=== PATIENT | female | born 1955 | race Hispanic/Latino ===

== ENCOUNTER 2018-09-27 07:43 | Day surgery (SDC) | payer BC, OTHER ==
[2018-09-27] MEDS ORDERED: HALFPRIN EC PO NR (08:39)
[2018-09-27] MEDS ORDERED: NACL 0.9% 500 ML 500 ML IV SCH (09:00)
[2018-09-27 09:11] LABS: Basophils % (Auto) 0.7 % (0.0-1.8); Eosinophils # (Auto) 0.2 K/mm3 (0.0-0.4); Eosinophils % (Auto) 4.3 % (0.0-4.3); Hematocrit 34.1 % (30.3-42.9); Hemoglobin 11.3 gm/dl (10.1-14.3); Lymphocytes # (Auto) 2.5 K/mm3 (1.2-5.4); Lymphocytes % (Auto) 51.4 % (13.4-35.0); Mean Corpuscular HGB Conc 33 % (30-34); Mean Corpuscular Volume 89 fl (79-97); Monocytes # (Auto) 0.3 K/mm3 (0.0-0.8); Monocytes % (Auto) 5.8 % (0.0-7.3); Platelet Count 242 K/mm3 (140-440); Red Blood Count 3.86 M/mm3 (3.65-5.03); Red Cell Distribution Width 15.2 % (13.2-15.2)
[2018-09-27 09:22] LABS: INR 0.84 (0.87-1.13)
[2018-09-27 09:23] LABS: Partial Thromboplastin Time 23.8 Sec. (24.2-36.6)
[2018-09-27 09:30] LABS: BUN/Creatinine Ratio 23; Blood Urea Nitrogen 14 mg/dL (7-17); Calcium 8.5 mg/dL (8.4-10.2); Hemolysis Index 4
[2018-09-27] MEDS ORDERED: HEPARIN/NS 5000 UNIT/500ML(CATH LAB) 1,000 ML IR ONE (10:38)
[2018-09-27] MEDS ORDERED: XYLOCAINE 2% INFILTRATI ONE (10:39)
[2018-09-27] MEDS ORDERED: VERSED ONE (10:39)
[2018-09-27] MEDS ORDERED: SUBLIMAZE ONE (10:39)
[2018-09-27] MEDS: NITROGLYCERIN SYRINGE 3 ML ONE ×2 (11:10→11:18)
[2018-09-27] MEDS: CALAN ONE ×2 (11:14→11:18)
[2018-09-27] MEDS: HEPARIN 10,000 UNITS/10 ML ONE ×2 (11:15→11:18)
--- NOTE | 2018-09-27 12:20 | Cardiac Catherization Report ---
REFERRING PHYSICIAN: Dr. Parish Ramírez. INDICATION FOR PROCEDURE: The patient is a very pleasant 63-year-old female with multiple risk factors including hypertension and who had a recent abnormal stress test, has been having recurrent chest pain and is referred for left heart catheterization. Risks, benefits, alternatives discussed prior to obtaining informed consent. PROCEDURE IN DETAIL: The patient was brought to the catheterization lab in a postabsorptive state, prepped and draped in the usual fashion. Colten's test in right hand was normal. A 2 mL of 2% lidocaine used to anesthetize the right wrist. A standard 5-Wallisian hydrophilic sheath used to cannulate the right radial artery via modified Seldinger technique. A 6-Wallisian sheath was used to cannulate the right radial artery via modified Seldinger technique. All exchanges were performed to exchange a J-tip guidewire. JL3.5 catheter used to engage the left main. No dampening or ventricularization. Cineangiography performed in all projections. JR4 catheter used to cross the aortic valve under fluoroscopic guidance. Left ventriculography was performed in 30 ANN and 30 YUE projections via hand injections, catheter flushed. Manual pullback performed with continuous pressure monitoring. Catheter used to engage the right coronary. No dampening or ventricularization. Cineangiography was performed in all projections. Next, due to recurrent chest pain, unremarkable coronaries, and hypertension, we proceeded with root aortogram with a pigtail catheter and power injector. Next, catheter removed from the body of wire, sheath removed. Manual pressure used to achieve hemostasis. I directly supervised the administration of moderate sedation from 11:10 a.m. to 11:30 a.m. with fentanyl and Versed. FINDINGS: The patient was in normal sinus rhythm throughout the procedure. DATA: Aortic pressure is 120/80, LV pressure is 120, LVP of 15 mmHg. Left ventriculography reveals normal systolic performance with estimated ejection fraction of 55%-60%. No evidence of aortic stenosis. CORONARY ANATOMY: Right dominant system. Right coronary is a large vessel, courses AV groove, distally bifurcates in the posterior and posterolateral branch, no discrete stenosis identified. Left main is a moderate sized vessel, is normal. No evidence of significant disease, bifurcates left anterior descending and left circumflex. Left circumflex is moderate sized vessel, courses AV groove, gives off a diminutive to AV groove circ and large OM trunk. No significant disease. LAD is a moderate sized vessel, courses anterior intergroove, wraps around the apex. Normal tapering in the LAD, but no significant disease. Root aortogram reveals normal contour, no evidence of dissection, penetrating aortic ulcer, or aortic insufficiency. Normal great vessel anatomy. CONCLUSIONS: 1. No angiographic evidence of significant epicardial coronary artery disease in this right dominant system. 2. Normal left ventricular systolic performance, estimated ejection fraction of 55%-60%. 3. No evidence of aortic stenosis. 4. Root aortography without evidence of dissection, penetrating aortic ulcer, or aortic insufficiency. The patient is clinically stable, chest pain free. She has no symptoms at this point, I believe her symptoms are noncardiac. Blood pressure control. Follow up with us in the office. Standard radial care. Results of procedure explained to the patient and her . All questions addressed. JOB# [id number] SBEra/NTS
--- NOTE | 2018-09-27 16:16 | Short Stay Summary ---
Short Stay Documentation Date of service: 09/27/18 - History H&P: obtained from office - Allergies and Medications Current Medications: Allergies No Known Allergies Allergy (Unverified 09/27/18 07:43) Home Medications Medication Instructions Recorded Confirmed Last Taken Type Lansoprazole [Prevacid] 30 mg PO DAILY 09/27/18 09/27/18 09/26/18 History 1Tab Levothyroxine [Synthroid] 125 mcg PO QDAY 09/27/18 09/27/18 09/26/18 History 1 tab Magnesium Oxide [Mag-Oxide] 400 mg PO BID 09/27/18 09/27/18 09/26/18 History 1 tab PARoxetine [Paxil] 20 mg PO DAILY 09/27/18 09/27/18 09/26/18 History 1 tab Simvastatin 80 mg PO DAILY 09/27/18 09/27/18 09/26/18 History Active Medications Sodium Chloride (Nacl 0.9% 500 Ml) 500 mls @ 50 mls/hr IV DIRECT MIREYA Stop: 09/27/18 18:59 Last Admin: 09/27/18 09:40 Dose: 50 mls/hr Documented by: - Brief post op/procedure progress note Date of procedure: 09/27/18 Pre-op diagnosis: abnormal stress test; cp Post-op diagnosis: same Procedure: LHC - see dictated cath report Anesthesia: local Estimated blood loss: none Condition: stable - Disposition Condition at discharge: Good Disposition: [id number] TO HOME OR SELFCARE - Discharge Diagnoses (1) Normal coronary arteries Status: Chronic Short Stay Discharge Plan Activity: advance as tolerated Wound: open to air, keep clean and dry, per your surgeon's advice Follow up with: JAYNA CABELLO MD [Primary Care Provider] - 7 Days HARSH WELLS MD [Staff Physician] - 7 Days Forms: CardCath PCI D/C Instructions
[2018-09-27 20:35] VITALS: BP 120/69
== END 2018-09-27 07:44 | disposition home or self-care (01) ==
LOC: CATHLABREC 07:43
PROVIDERS: ATTEND Internal Medicine
DX: R07.89 Other chest pain (principal); R94.39 Abnormal result of other cardiovascular function study; H40.9 Unspecified glaucoma; G43.909 Migraine, unspecified, not intractable, without status migrainosus; E78.00 Pure hypercholesterolemia, unspecified; I10 Essential (primary) hypertension; K21.9 Gastro-esophageal reflux disease without esophagitis; M19.90 Unspecified osteoarthritis, unspecified site; E03.9 Hypothyroidism, unspecified; Z98.890 Other specified postprocedural states; Z91.81 History of falling; Z79.899 Other long term (current) drug therapy; Z90.49 Acquired absence of other specified parts of digestive tract; Z90.710 Acquired absence of both cervix and uterus; Z87.442 Personal history of urinary calculi
CPT/HCPCS: 36415; 80048; 85025; 85610; 85730; 93005; 93010; 93458; 93567; 99156; C1894; J1644; J2250; J3010; J7040; Q9967